=== PATIENT | female | born 1950 | race Caucasian/White ===

== ENCOUNTER 2017-06-15 14:32 | Inpatient (IN) | payer OTHER ==
[~2017-06-15] VITALS: Ht 170.2 cm; Wt 72.5 kg
[2017-06-15 15:17] LABS: HEMATOCRIT 44.7 % (36.0-46.0); HEMOGLOBIN 15.4 G/DL (11.9-15.5); MCH 31.2 PG (29.0-34.0); MCHC 34.5 G/DL (30.0-36.0); MCV 90.7 FL (83-99); PLATELET COUNT 282 K/uL (156-360); RBC DIS.WIDTH-CV 12.8 % (11.8-14.6); RBC DIS.WIDTH-SD 42.2 % (39-53); RED BLOOD COUNT 4.93 M/uL (3.80-5.20)
[2017-06-15 15:28] LABS: ALBUMIN 4.6 g/dL (3.2-4.8); CHLORIDE 107 mEq/L (99-109); POTASSIUM 3.9 mEq/L (3.7-5.4); SODIUM 140 mEq/L (136-147)
[2017-06-15 15:31] LABS: GLUCOSE 143 mg/dL (70-99); TOTAL PROTEIN 7.7 g/dL (6.4-8.3)
[2017-06-15 15:33] LABS: TOTAL BILIRUBIN 1.2 mg/dL (0.0-1.0)
[2017-06-15 15:34] LABS: ALKALINE PHOSPHATASE 77 IU/L (3-129); CREATININE 0.8 mg/dL (0.6-1.3); GFR ESTIMATE (CALCULATED) > 59 mL/min/
[2017-06-15 15:35] LABS: UREA NITROGEN (BUN) 13 mg/dL (9-23)
[2017-06-15 15:36] LABS: AST (GOT) 18 IU/L (2-34)
[2017-06-15 15:37] LABS: ALT (GPT) 19 IU/L (3-49)
[2017-06-15 15:38] LABS: LIPASE 13 U/L (1.0-51.0)
[2017-06-15 18:24] LABS: APPEARANCE CLEAR ((CLEAR)); BILIRUBIN NEGATIVE; BLOOD NEGATIVE; COLOR STRAW ((YELLOW)); GLUCOSE (STRIP) NEGATIVE; KETONES 20; LEUKOCYTES NEGATIVE; NITRITE NEGATIVE; PROTEIN (STRIP) NEGATIVE; SPECIFIC GRAVITY 1.033 (1.000-1.030); UCUL ADDED? NO; UROBILINOGEN 0.2 MG/DL (0.2-1.0)
[2017-06-15] MEDS ORDERED: AMBIEN5 MG PO ×3 (19:29→19:40)
[2017-06-15] MEDS ORDERED: AVENTYL,PAMELOR10 MG PO (19:37)
[2017-06-15] MEDS ORDERED: CENTRUM COMPLE1 EACH PO (19:41)
[2017-06-15] MEDS ORDERED: PROBIOTIC1 EAC5 PO (19:42)
[2017-06-15] MEDS ORDERED: FLAX OIL1000 MG PO (19:43)
[2017-06-15 22:52] VITALS: BP 159/89
[2017-06-15 23:13] LABS: HEMATOCRIT 40.4 % (36.0-46.0); HEMOGLOBIN 14.1 G/DL (11.9-15.5); MCH 31.8 PG (29.0-34.0); MCHC 34.9 G/DL (30.0-36.0); PLATELET COUNT 248 K/uL (156-360); RBC DIS.WIDTH-CV 12.8 % (11.8-14.6); RBC DIS.WIDTH-SD 42.5 % (39-53); RED BLOOD COUNT 4.44 M/uL (3.80-5.20); WHITE BLOOD COUNT 14.1 K/uL (4.1-10.2)
[2017-06-16 04:00] VITALS: BP 118/59
[2017-06-16 04:37] LABS: HEMATOCRIT 39.6 % (36.0-46.0); HEMOGLOBIN 13.4 G/DL (11.9-15.5); MCH 31.3 PG (29.0-34.0); MCHC 33.8 G/DL (30.0-36.0); MCV 92.5 FL (83-99); PLATELET COUNT 233 K/uL (156-360); RBC DIS.WIDTH-SD 43.8 % (39-53); RED BLOOD COUNT 4.28 M/uL (3.80-5.20); WHITE BLOOD COUNT 13.1 K/uL (4.1-10.2)
[2017-06-16 04:51] LABS: ALBUMIN 3.8 g/dL (3.2-4.8); CHLORIDE 109 mEq/L (99-109); POTASSIUM 4.5 mEq/L (3.7-5.4); SODIUM 140 mEq/L (136-147)
[2017-06-16 04:55] LABS: TOTAL BILIRUBIN 1.2 mg/dL (0.0-1.0)
[2017-06-16 04:57] LABS: ALKALINE PHOSPHATASE 65 IU/L (3-129); CREATININE 0.7 mg/dL (0.6-1.3); GFR ESTIMATE (CALCULATED) > 59 mL/min/
[2017-06-16 04:58] LABS: UREA NITROGEN (BUN) 9 mg/dL (9-23)
[2017-06-16 04:59] LABS: AST (GOT) 14 IU/L (2-34)
[2017-06-16 05:00] LABS: ALT (GPT) 15 IU/L (3-49)
[2017-06-16 05:02] LABS: GLUCOSE 102 mg/dL (70-99); TOTAL PROTEIN 5.8 g/dL (6.4-8.3)
[2017-06-16 08:15] VITALS: BP 131/68
[2017-06-16 12:04] VITALS: BP 129/62
[2017-06-16 15:01] LABS: HEMATOCRIT 38.4 % (36.0-46.0); HEMOGLOBIN 12.8 G/DL (11.9-15.5); MCV 92.1 FL (83-99)
[2017-06-16 16:01] VITALS: BP 139/74
[2017-06-16 19:15] VITALS: BP 127/67
[2017-06-17 00:33] VITALS: BP 154/70
[2017-06-17 04:44] VITALS: BP 122/67
[2017-06-17 08:00] VITALS: BP 133/74
[2017-06-17 11:43] VITALS: BP 141/78
[2017-06-17] MEDS ORDERED: CIPRO500 MG PO (11:49)
[2017-06-17] MEDS ORDERED: METRONIDAZOLE500 MG PO (11:50)
[2017-06-17] MEDS ORDERED: PROBIOTIC1 EAC5 PO (11:51)
== END 2017-06-17 14:21 | disposition home or self-care (01) | DRG 392 ==
LOC: EME 14:32 → EDOF 21:51 → ENRESERV 21:53 → 5WEST 22:41
PROVIDERS: Emergency Medicine; Hospitalist; Physician Assistant; Student in an Organized Health Care Education/Training Program
DX: A09 Infectious gastroenteritis and colitis, unspecified (principal); R73.03 Prediabetes; I73.00 Raynaud's syndrome without gangrene; I10 Essential (primary) hypertension; E11.9 Type 2 diabetes mellitus without complications; Z82.5 Family history of asthma and other chronic lower respiratory diseases; Q43.3 Congenital malformations of intestinal fixation
CPT/HCPCS: 74177; 80053; 81003; 82948; 83605; 83690; 85014; 85018; 85027; 99281; 99285; C9113; G0378; J0744; J1815; J2270; J2405; J7030; S0030